=== PATIENT | female | born 2000 | race Caucasian/White ===

== ENCOUNTER 2018-07-23 13:32 | Emergency (ER) | payer SELFPAY ==
[~2018-07-23] VITALS: Ht 172.7 cm; Wt 76.4 kg
[2018-07-23 13:50] VITALS: BP 132/73
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
== END 2018-07-23 14:04 | disposition home or self-care (01) ==
LOC: ER 13:38
DX: S31.41XA Laceration without foreign body of vagina and vulva, initial encounter (principal); X58.XXXA Exposure to other specified factors, initial encounter; Y93.89 Activity, other specified; Y92.89 Other specified places as the place of occurrence of the external cause; Y99.8 Other external cause status
CPT/HCPCS: 99281